=== PATIENT | female | born 1950 | race Caucasian/White ===

== ENCOUNTER → 2016-11-24 | Outpatient (CLI) | payer OTHER | LOC: MAMMO 08:19 | DX: Z12.31 Encounter for screening mammogram for malignant neoplasm of breast (principal); Z13.820 Encounter for screening for osteoporosis; M85.80 Other specified disorders of bone density and structure, unspecified site | CPT/HCPCS: G0202 ==

== ENCOUNTER → 2017-01-03 | Outpatient (CLI) | payer OTHER, MEDICARE | LOC: RAD 12:00 → VAS 16:15 | DX: R01.1 Cardiac murmur, unspecified (principal) ==

== ENCOUNTER → 2017-10-12 | Outpatient (CLI) | payer BC, MEDICARE | LOC: RAD 09:03 | DX: E04.2 Nontoxic multinodular goiter (principal) ==

== ENCOUNTER → 2017-12-19 | Outpatient (CLI) | payer BC, MEDICARE | LOC: VAS 16:38 → RAD 17:00 | DX: I08.3 Combined rheumatic disorders of mitral, aortic and tricuspid valves (principal); R93.1 Abnormal findings on diagnostic imaging of heart and coronary circulation ==

== ENCOUNTER → 2018-03-29 | Outpatient (CLI) | payer BC, MEDICARE | LOC: MAMMO 11:30 | DX: Z12.31 Encounter for screening mammogram for malignant neoplasm of breast (principal) ==

== ENCOUNTER → 2019-10-01 | Outpatient (CLI) | payer MEDICARE | LOC: MAMMO 09:55 | DX: Z12.31 Encounter for screening mammogram for malignant neoplasm of breast (principal) ==

== ENCOUNTER → 2019-10-01 | Outpatient (CLI) | payer MEDICARE | LOC: MAMMO 09:55 | DX: Z13.820 Encounter for screening for osteoporosis (principal); M81.0 Age-related osteoporosis without current pathological fracture; M85.852 Other specified disorders of bone density and structure, left thigh; M85.851 Other specified disorders of bone density and structure, right thigh ==

== ENCOUNTER → 2021-12-07 | Outpatient (CLI) | payer MEDICARE | LOC: MAMMO 10:40 | DX: Z12.31 Encounter for screening mammogram for malignant neoplasm of breast (principal); Z13.820 Encounter for screening for osteoporosis; M85.80 Other specified disorders of bone density and structure, unspecified site ==

== ENCOUNTER → 2024-03-21 | Outpatient (CLI) | payer MEDICARE | LOC: MAMMO 09:27 | DX: Z12.31 Encounter for screening mammogram for malignant neoplasm of breast (principal) ==

== ENCOUNTER → 2024-10-05 | Outpatient (CLI) | payer MEDICARE | LOC: MAMMO 08:30 → RAD 08:37 | DX: M85.80 Other specified disorders of bone density and structure, unspecified site (principal) ==

== ENCOUNTER 2024-11-23 13:13 | Emergency (ER) | payer MEDICARE ==
[~2024-11-23] VITALS: Ht 154.9 cm; Wt 77.7 kg
[2024-11-23 13:34] LABS: BASO # 0.04 K/mm3 (0.02-0.10); EOS # 0.25 K/mm3 (0.04-0.40); EOS % 2.9 % (1.0-5.0); LYMPH# 0.95 K/mm3 (1.50-4.00); MEAN CELL VOLUME 81 fl (78-100); MEAN CORPUSCULAR HEMOGLOBIN 25 pg (27-31); MEAN CORPUSCULAR HGB CONC 31 g/dL (33-37); MEAN PLATELET VOLUME 10.3 fl (7.4-10.4); MONO # 0.66 K/mm3 (0.20-0.80); NEU # 6.83 K/mm3 (1.40-6.50); PLATELET COUNT 294 K/mm3 (130-400); RED CELL DISTRIBUTION WIDTH 16.9 % (11.5-14.5); WHITE BLOOD COUNT 8.8 K/mm3 (4.8-10.8)
[2024-11-23 13:41] LABS: ALBUMIN 3.4 g/dL (3.4-4.8)
[2024-11-23 13:43] LABS: CALCIUM 9.2 mg/dL (8.3-10.5)
[2024-11-23 13:44] LABS: TOTAL PROTEIN 6.9 g/dL (6.2-8.1)
[2024-11-23 13:46] LABS: TOTAL BILIRUBIN 6.9 mg/dL (0.2-1.2)
[2024-11-23 13:51] LABS: PH-URINE 5.5 (5.0 - 8.0); URINE APPEARANCE CLEAR (CLEAR); URINE BILIRUBIN 3+ (NEGATIVE); URINE COLOR AMBER (YELLOW); URINE GLUCOSE TRACE (NEGATIVE); URINE KETONE TRACE (NEGATIVE); URINE PROTEIN(semi-quant) TRACE (NEGATIVE)
[2024-11-23 13:52] LABS: URINE BLOOD NEGATIVE (NEGATIVE); URINE LEUKOCYTE ESTERASE NEGATIVE (NEGATIVE); URINE NITRATE NEGATIVE (NEGATIVE); URINE WBC 0-1 /hpf (0-3)
[2024-11-23] MEDS ORDERED: BUSPIRONE HCL7.5 MG (14:06)
[2024-11-23] MEDS ORDERED: LEVOTHYROXINE0.05 MG PO (14:09)
[2024-11-23] MEDS ORDERED: LEVOTHYROXIN0.025 MG PO (14:09)
[2024-11-23] MEDS ORDERED: LISINOPRIL40 MG PO (14:10)
[2024-11-23] MEDS ORDERED: PRILOSEC 20MG20 MG PO (14:10)
[2024-11-23] MEDS ORDERED: BENZONATATE200 MG PO (14:11)
[2024-11-23] MEDS ORDERED: MELOXICAM7.5 MG PO (14:12)
[2024-11-23] MEDS ORDERED: CELEXA 20MG20 MG/TA1 PO (14:12)
[2024-11-23] MEDS ORDERED: Iohexol 300 - 100 ML VIAL IV ONE (14:13)
[2024-11-23] MEDS ORDERED: NS 100 ML IV SCH (14:14)
[2024-11-23] MEDS ORDERED: cefTRIAXone 1 G in Water For Injection,Sterile 10 ML IV ONE (14:15)
[2024-11-23] MEDS ORDERED: LORAZEPAM0.5 M1 PO (15:40)
[2024-11-23] MEDS ORDERED: TEMOVATE OINT30 GM TOP (15:40)
[2024-11-23] MEDS ORDERED: DOXYCYCLINE MO100 M3 PO (15:40)
[2024-11-23] MEDS ORDERED: AMOXICILLIN AND1 TA2 PO (15:40)
[2024-11-23 15:51] VITALS: BP 142/71
[2024-11-23 23:08] LABS: HEPATITIS C ANTIBODY Nonreactive (Nonreactiv)
== END 2024-11-23 15:51 | disposition home or self-care (01) ==
LOC: ED 13:13
PROVIDERS: Family Medicine
DX: R17 Unspecified jaundice (principal); N39.0 Urinary tract infection, site not specified; D64.9 Anemia, unspecified; R74.8 Abnormal levels of other serum enzymes; R74.01 Elevation of levels of liver transaminase levels
CPT/HCPCS: J0696; J7120; Q9967